=== PATIENT | male | born 1930 | race Caucasian/White ===

== ENCOUNTER → 2017-03-15 | Outpatient (CLI) | payer OTHER ==
[~2017-03-15] MED LIST: ADVAIR 250-501 EACH INH; ALBUTEROL17 GM INH; ASPIRIN81 M2 PO; BAYER CHEWABLE81 MG PO; CEFTIN250 MG/5 M PO; CENTRUM PO; CENTRUM SILVER1 EAC4 PO; CLARITIN10 M3 PO; CLOPIDOGREL75 MG PO; DOXYCYCLINE HY100 M3 PO; DOXYCYCLINE HY100 M4 PO; EC-NAPROSYN500 MG PO; FLONASE 0.05% N16 G1; FLONASE 0.05% N16 GM; FUROSEMIDE40 MG PO; HYDROCODON-ACE1 EAC7 PO; IPRATR-ALBUTEROL3 ML INH; KCL PO; LASIX PO; LEVOXYL75 MCG PO; LIPITOR20 MG PO; LOPRESSOR PO; METOPROLOL TAR25 MG PO; MORGIDOX100 MG PO; NASAL SPRAY44 ML; NITRO-DUR 0.1M0.1 MG TOP; NITRO-DUR1 EAC1 TOP; NITRODISC TOP; NITROGLYGERIN0.4 MG SL; OXYGEN INH; PATIENT'S PHARMACY; POTASSIUM CHLO10 MEQ PO; PREDNISONE; PREDNISONE PO; PREDNISONE10 MG PO; SPIRIVA18 MCG INH; SYMBICORT INH; SYNTHROID75 MCG PO; TRIAMCINOLONE A15 G2 EXT; ZITHROMAX500 MG PO; ZOCOR80 MG PO; [UNRECOGNIZED DRUG - OTHER]; [UNRECOGNIZED DRUG - OTHER] PO
--- NOTE | ~2017-03-15 | TH ---
Unit #: [id number] #: [id number] Patient: LASHON ALMONTE [id number] [address] [place], [place] [address] [id number] O MR#: [id number] NAME: LASHON ALMONTE : 1930 SEX: M STUDY DATE/TIME: 03/15/2017 UNIT: [facility] ROOM: STUDY DESCRIPTION: Cardiolite imaging. Attending Physician: Genoveva Hurd M.D. Referring Physician: Genoveva Hurd M.D. Primary Care Physician: Genoveva Hurd M.D. CARDIOLOGY REPORT EXAM Cardiolite imaging. INDICATION FOR STUDY Dyspnea, abnormal ECG, inability to exercise adequately, status post PTCA in the past. The patient stopped smoking 26 years ago, 3 packs per day. SUMMARY The patient received Lexiscan intravenously while at rest, as well as technetium 99m Cardiolite 11.47 and 36.0 mCi at rest and stress respectively. Appropriate views were obtained. FINDINGS Heart rate increased from 47 to 62 and blood pressure increased from 162/72 to 169/63. The patient did not develop any symptoms. The resting ECG showed T wave inversion in AVL. With stress there were no diagnostic ST shifts, but there were single PVCs noted. There were no sustained dysrhythmias. Perfusion images demonstrate absence of perfusion in the inferior wall from the base to the apex. The inferoapical wall is preserved, however. This extends into the inferolateral wall. There is no change between rest and stress. Planar images demonstrate slight patient motion at rest, but no significant patient motion with stress. Summed stress scores is 19, summed difference scores is 6. Changes involve primarily border detection at the base. Gated perfusion wall motion analysis demonstrates end-diastolic volume 131 ml, ejection fraction 49%, with akinesis of the inferior wall, and hypokinesis of the neeta-infarct areas. On the planar images there is no significant increase in left ventricular size. No increased lung uptake or RV enlargement. IMPRESSION 1. Inferior infarction. 2. No ischemia. 3. Mild left ventricular enlargement. 4. Low normal to mildly reduced left ventricular function. Dictated by... Ziyad Joy M.D. Unit #: [id number] #: [id number] Patient: LASHON ALMONTE PJR/gz TD: 03/15/2017 12:06 JOB #: [id number] CARDIOLOGY REPORT Page 1 of 1 X Ziyad Joy MD CARDIOLOGY REPORT
== END | disposition home or self-care (01) ==
LOC: CNUC 07:05
DX: R06.00 Dyspnea, unspecified (principal); R94.31 Abnormal electrocardiogram [ECG] [EKG]; I51.7 Cardiomegaly
CPT/HCPCS: 78452; 93017; A9500; J2785

== ENCOUNTER 2017-04-17 13:38 | Inpatient (IN) | payer OTHER ==
--- NOTE | ~2017-04-17 | EKG ---
PATIENT: LASHON ALMONTE UNIT #: [id number] Ventricular Rate: 92 BPM Atrial Rate: 92 BPM P-R Interval: 176 ms QRS Duration: 98 ms Q-T Interval: 376 ms QTC Calculation(Bezet): 464 ms P [place]: 86 degrees Calculated R [place]: -10 degrees Calculated T [place]: -45 degrees Diagnosis Line: Normal sinus rhythm with sinus arrhythmia Diagnosis Line: Poor R wave progression questionable lead position Diagnosis Line: or body habitus Diagnosis Line: Nonspecific T wave abnormality Diagnosis Line: Abnormal ECG Diagnosis Line: No previous ECGs available Diagnosis Line: Confirmed by SHANIQUA CHU MD ([id number]) on Diagnosis Line: 04/17/2017 10:21:37 PM INTERPRETING MD: ANISH
--- NOTE | ~2017-04-17 | CR72 ---
[facility] A Service of [facility] & [facility] RADIOLOGY TEXT RESULTS PATIENT: LASHON ALMONTE LOCATION: [facility] [id number] : [birth year] UNIT #: [id number] AGE: [address]: Jaya Colon MD SEX: M ORDER DR: [id number] [facility] [address] [facility]. [place], [place] [address] [id number] I MR#: [id number] Acc #: [id number] NAME: LASHON ALMONTE : 1930 SEX: M STUDY DATE/TIME: 04/18/2017 5:57 UNIT: [facility] ROOM: [facility] STUDY DESCRIPTION: CR Chest Single View Portable Attending Physician: Jaya Colon M.D. Ordering Physician: Jaya Colon M.D. Primary Care Physician: Genoveva Hurd M.D. MEDICAL IMAGING REPORT This report is preliminary unless electronic signature is present EXAM Portable chest, 04/18/2017 HISTORY 86-year-old male with shortness of air for 1 day. COMPARISON Chest, 04/17/2017 FINDINGS Two frontal views of the chest demonstrate clear lungs. No pleural effusion or pneumothorax. Emphysema. Heart size and mediastinum within normal limits. Pulmonary vasculature unremarkable. IMPRESSION Emphysema. No other acute chest findings. Dictated by... Ronaldo Maurice M.D. THIS IS AN ELECTRONICALLY VERIFIED REPORT Ronaldo Maurice M.D. at 04/18/2017 3:23 PM Geovanni TD: 04/18/2017 08:12 JOB #: [id number] MEDICAL IMAGING REPORT Page 1 of 1 COPY
--- NOTE | ~2017-04-17 | EKG ---
PATIENT: LASHON ALMONTE UNIT #: [id number] Ventricular Rate: 83 BPM Atrial Rate: 83 BPM P-R Interval: 214 ms QRS Duration: 108 ms Q-T Interval: 366 ms QTC Calculation(Bezet): 430 ms P [place]: 72 degrees Calculated R [place]: -52 degrees Calculated T [place]: -3 degrees Diagnosis Line: Sinus rhythm with 1st degree A-V block with Diagnosis Line: Premature atrial complexes Diagnosis Line: Left axis deviation Diagnosis Line: Inferior infarct (cited on or before 18-APR-2017) Diagnosis Line: Abnormal ECG Diagnosis Line: When compared with ECG of 17-APR-2017 13:45, Diagnosis Line: Premature atrial complexes are now Present Diagnosis Line: IA interval has increased Diagnosis Line: QRS axis Shifted left Diagnosis Line: Nonspecific T wave abnormality has replaced Diagnosis Line: inverted T waves in Lateral leads Diagnosis Line: Confirmed by AYSE CABA MD ([id number]) on 04/19/2017 Diagnosis Line: 6:31:05 PM INTERPRETING MD: GERTRUDIS LOPES
--- NOTE | ~2017-04-17 | CR72 ---
[facility] A Service of [facility] & [facility] RADIOLOGY TEXT RESULTS PATIENT: LASHON ALMONTE LOCATION: [facility] [id number] : [birth year] UNIT #: [id number] AGE: [address]: Jaya Colon MD SEX: M ORDER DR: [id number] [facility] [address] [facility]. [place], [place] [address] [id number] I MR#: [id number] Acc #: [id number] NAME: LASHON ALMONTE : 1930 SEX: M STUDY DATE/TIME: 04/17/2017 14:58 UNIT: [facility] ROOM: [facility] STUDY DESCRIPTION: CR Chest Single View Portable Attending Physician: Jaya Colon M.D. Ordering Physician: Gino Hanson M.D. Primary Care Physician: Genoveva Hurd M.D. MEDICAL IMAGING REPORT This report is preliminary unless electronic signature is present EXAM Portable chest 2 views, 04/17/2017. COMPARISON 12/23/2014 HISTORY Short of air for 3 weeks. FINDINGS Redemonstrated pulmonary hyperexpansion consistent with COPD, but there is no consolidation, effusion, pneumothorax, or suspicious nodule. No acute abnormality. Dictated by... Cade Walters M.D. THIS IS AN ELECTRONICALLY VERIFIED REPORT Cade Walters M.D. at 04/20/2017 2:20 PM TEV/collin TD: 04/17/2017 21:07 JOB #: [id number] MEDICAL IMAGING REPORT Page 1 of 1 COPY
--- NOTE | ~2017-04-17 | HP ---
Unit #: [id number] #: [id number] Patient: LASHON ALMONTE [id number] [address] [place], [place] [address] [id number] I MR#: [id number] NAME: LASHON ALMONTE ROOM: 36612 Age: 86 Sex: M Admission Date: 04/17/2017 : 1930 Attending Physician: Jaya Colon M.D. Primary Care Physician: Genoveva Hurd M.D. HISTORY AND PHYSICAL CHIEF COMPLAINT Shortness of breath. HISTORY OF PRESENT ILLNESS This 86-year-old gentleman previously seen by Dr. Canada and apparently sees him in the office intermittently as well. He has had a 3-5 week history of increasing shortness of breath. He apparently would receive steroids and antibiotics and would improve but then this would recur. He presents to the emergency room. Chest x-ray was unremarkable for any acute issues. He received Solu-Medrol and was presented for admission. He denies chest pain, hemoptysis or palpitations. He does have wheezing, sputum production, cough but no fever. PAST MEDICAL HISTORY Remarkable for: 1. Chronic kidney disease. 2. COPD. 3. Chronic respiratory failure on 3 liters at home. 4. Hypothyroidism is mentioned but he could not tell me if he was on thyroid replacement. PAST SURGICAL HISTORY 1. HOME MEDICATIONS He is very vague with his medicine and formal medication reconciliation sheet is pending. 1. He can tell me he is on Spiriva. 2. He is on an albuterol nebulizer which he takes q.i.d. 3. He is on aspirin. 4. Thorazine for unknown reasons. ALLERGIES Penicillin. SOCIAL HISTORY Remote tobacco. Does not drink. He lives at home. FAMILY HISTORY No definite familial lung disease. REVIEW OF SYSTEMS He has no swallowing difficulty. No abdominal pain, melena, hematochezia, diarrhea. No hematuria, dysuria. No focal weakness or paresthesias, leg Unit #: [id number] #: [id number] Patient: LASHON ALMONTE pain or swelling. He denies chest pain or palpitations. No fever or chills. Further review of systems is negative. PHYSICAL EXAMINATION VITAL SIGNS: He is afebrile. Pulse 90, respiratory rate 20, blood pressure 121/63. 5 feet 11 inches, 175 pounds. GENERAL: Elderly gentleman in no acute distress. HEENT: Pupils are equal, round, and reactive to light. Sclerae anicteric. Head atraumatic. He is edentulous with dentures in place. Mucous membranes are moist. NECK: Supple. No supraclavicular or cervical adenopathy appreciated. LUNGS: Scattered wheezing, rhonchi. No consolidation. HEART: Regular rate and rhythm. No pathologic murmur, rub or gallop. ABDOMEN: Soft, nontender. No hepatomegaly or rebound. EXTREMITIES: No clubbing, cyanosis or edema. No calf tenderness. NEUROLOGIC: Grossly intact. No focal muscle or sensory deficits. SKIN: Warm and dry without rash or diaphoresis. DIAGNOSTIC STUDIES LABORATORY: Arterial blood gas pH 7.47, pCO2 of 38, pO2 of 65 on 2 liters. BUN 31, creatinine 1.7. BNP 339. Lactic acid 2.0. TSH in 2013 was normal. Initial cardiac enzymes negative. CBC normal. Blood cultures performed and are pending. IMAGING: Chest x-ray I see no definite acute infiltrates. There appears to be some scarring at the left base. There was some area of abnormality there all the way back in 2013. However, a chest x-ray in 2014 was fairly clear and this area should be followed. CARDIOVASCULAR: EKG is abnormal with nonspecific ST-T-wave changes. I have no old EKGs to compare. IMPRESSION 1. Shortness of breath. 2. Acute exacerbation of chronic obstructive pulmonary disease. 3. Chronic respiratory failure. 4. Coronary artery disease with abnormal EKG. 5. Chronic kidney disease. 6. Mildly abnormal chest x-ray. 7. Possible history of hypothyroidism. 8. Medical problems listed above. PLAN 1. Admission to the hospital. 2. IV medications, IV antibiotics. 3. Will cover for possible pneumonia and repeat his chest x-ray in the morning. 4. I will ask cardiology evaluation regarding his EKG. 5. Cardiac enzymes will be monitored. Unit #: [id number] #: [id number] Patient: LASHON ALMONTE Dictated by Shalini Helton/marlin TD: 04/17/2017 17:39 JOB #: [id number] HISTORY AND PHYSICAL Page 1 of 1 X Jaya Colon MD HISTORY AND PHYSICAL
--- NOTE | ~2017-04-17 | DS ---
Unit #: [id number] #: [id number] Patient: LASHON ALMONTE [id number] [address] [address] [id number] I MR#: [id number] NAME: LASHON ALMONTE ROOM: 576 Age: 86 Sex: M Admission Date: 04/17/2017 : 1930 Discharge Date: 04/23/2017 Attending Physician: Jaya Colon M.D. Primary Care Physician: Genoveva Hurd M.D. DISCHARGE SUMMARY DISCHARGE DIAGNOSES 1. Acute and chronic hypoxemic respiratory failure. 2. Chronic obstructive pulmonary disease exacerbation. 3. Coronary artery disease. 4. Chronic systolic congestive heart failure. 5. Hyperlipidemia. 6. Chronic kidney disease. 7. Fbdv-ug-kbgsrcgh aortic regurgitation. DISCHARGE MEDICATIONS 1. Metoprolol 12.5 mg b.i.d. 2. Lipitor 20 mg q.h.s. 3. Plavix 75 mg daily. 4. Prednisone 40 mg for 3 days, decreasing by 10 mg every 3 days until off. 5. Multivitamin 1 daily. 6. Aspirin 81 mg daily. 7. Dewey Nasal [place] as needed. 8. Synthroid 75 mcg daily. 9. Albuterol inhaler or nebulizer q.4 hours as needed. 10. Spiriva 18 mcg 1 inhalation daily. 11. Advair 250/50 mcg 1 inhalation b.i.d. 12. Lasix 20 mg p.o. daily. 13. Sublingual nitroglycerin. 14. O2 at prescribed level. DISCHARGE DIET Healthy heart diet. HOSPITAL COURSE Patient admitted with increasing shortness of breath with exacerbation of COPD. Also had a history of coronary artery disease status post PCI and stents approximately 20 years ago. Had a recent Cardiolite stress test in March, which showed inferior infarct, no ischemia, ejection fraction 49%. He had an abnormal EKG on admission. Cardiology was consulted. He was treated for exacerbation of his COPD with inhaled bronchodilators, IV Solu-Medrol and antibiotics. He improved with clearing of his wheezes, and his steroid dose has been decreased. He underwent cardiac catheterization by Dr. Esquivel. The left circumflex was codominant, and it appears like that was dilated. The right coronary artery also had a 90% lesion, but that is scheduled to be done in sequential fashion in 3 weeks. He is to follow up in our office in 2 weeks to monitor respiratory status, follow up with Dr. Esquivel for his angioplasty. Unit #: [id number] #: [id number] Patient: LASHON ALMONTE Dictated by... Shalini Renae/cassandra TD: 04/24/2017 08:04 JOB #: [id number] DISCHARGE SUMMARY Page 1 of 1 X Eulogio Canada MD X DISCHARGE SUMMARY
--- NOTE | ~2017-04-17 | CO ---
Unit #: [id number] #: [id number] Patient: LASHON ALMONTE [id number] [address] [place] [id number] [facility] [place] [facility]. [place], [place] [address] [id number] I MR#: [id number] NAME: LASHON ALMONTE ROOM: 576 Age: 86 Sex: M Admission Date: 04/17/2017 : 1930 Attending Physician: Jaya Colon M.D. Primary Care Physician: Genoveva Hurd M.D. Consultation Date: 04/18/2017 CONSULTATION REPORT REASON FOR CONSULTATION Abnormal EKG. HISTORY OF PRESENT ILLNESS This is an 86-year-old white male, previously known to our group with a past medical history of coronary artery disease status post PCI and stents approximately 20 years ago after a myocardial infarction. One of the cardiac catheterizations was completed by Dr. Garcia and the other one was done at [facility]. Details are unavailable. The patient had a recent Lexiscan Cardiolite stress test on 03/15/2017, that was ordered by his primary care provider. Nuclear images revealed an inferior infarct, but no ischemia. Ejection fraction was 49%. Additional past medical history includes COPD on home oxygen, hyperlipidemia, hypothyroidism, and reformed tobacco abuse. The patient presented to the hospital with complaints of shortness of breath over the past 5 weeks, it worse over the past 1 week. The shortness of breath has been mainly with exertion, but at sometimes at rest. He denies PND or orthopnea. He did have some lower extremity edema. He was given Lasix by his provider, but only took it for 2 days. Once the edema resolved, he quit taking the medication per instructions from his primary care. He denies dizziness, palpitations, or syncope. He has been sleeping with 1 pillow at night. He states that he is fairly active and is still working at the age of 86. He is on home oxygen, but states that he does not wear it all the time, but does have a nearby. He denies fever or chills. He has had a cough, which was nonproductive for a while, but now has become productive. He did notice that he had some chest pain recently after coughing that was described as tightness. It went across the chest. He has had no other episodes of chest pain with exertion or rest. In the emergency department, his temperature was 97.8, pulse 90, respirations 20, blood pressure 104/63, and O2 saturation normal. He was given a dose of IV Solu-Medrol. He was admitted for an acute exacerbation of COPD. Initial EKG revealed a left axis deviation and Q-waves in the inferior leads. He also had some T-wave abnormality as well as sinus arrhythmia. Cardiology was consulted due to abnormal EKG. PAST MEDICAL HISTORY 1. Lexiscan Cardiolite stress test on 03/15/2017, revealed an inferior infarct. No ischemia. Ejection fraction 49%. 2. Coronary artery disease with myocardial infarction status post PCI and stent approximately 20 years ago. Repeat [place] and PCI and stent a couple of years later. Records unavailable. Unit #: [id number] #: [id number] Patient: LASHON ALMONTE 3. COPD, on home oxygen. 4. Hyperlipidemia. 5. Hypothyroidism. 6. Reformed tobacco abuse. PAST SURGICAL HISTORY Cardiac catheterization with PCI and stents x2. HOME MEDICATIONS 1. Aspirin 81 mg p.o. daily. 2. Multivitamin 1 tablet p.o. daily. 3. Prednisone 20 mg taper. 4. Doxycycline 100 mg p.o. b.i.d. for 14 days. 5. Lasix 20 mg p.o. daily for 5 days and p.r.n. 6. Synthroid 25 mcg p.o. daily. 7. Nitroglycerin 0.2 mg p.r.n. 8. Albuterol 2 puffs inhalation b.i.d. p.r.n. ALLERGIES Penicillin. SOCIAL HISTORY The patient lives in a private residence alone. 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 He is a reformed smoker and quit 20 years ago. There are no reports of illicit drug use. He quit drinking alcohol 35 years ago. FAMILY HISTORY His father of alcoholic cirrhosis. REVIEW OF SYSTEMS A 10-point review of systems is negative except for details noted above in HPI. PHYSICAL EXAMINATION VITAL SIGNS: Temperature 98.2, pulse 68, and blood pressure 114/62. CONSTITUTIONAL: This is an 86-year-old white male, in no acute distress. SKIN: Warm and dry. NECK: Supple. No jugular vein distention. No hepatojugular reflex. Normal carotid upstrokes. No carotid bruits auscultated. HEART: S1 and S2. Regular rate and rhythm. No murmurs, rubs, or gallops. LUNGS: Breath sounds are diminished in the bases. Respirations are even and nonlabored. No rales, rhonchi, or wheezes. ABDOMEN: Soft, nontender, and nondistended. Positive bowel sounds auscultated x4 quadrants. No ascites noted. EXTREMITIES: Bilateral lower extremities have no pretibial or pitting edema. DP and PT pulses 2+. Capillary refill is less than 2 seconds. DIAGNOSTIC STUDIES LABORATORY RESULTS: White blood cell count 6, hemoglobin 12.5, hematocrit 37.4, and platelets 219. Sodium 131, potassium 4.5, chloride 96, CO2 of 26, BUN 33, creatinine 1.4, and glucose 138. AST 29, ALT 19, and alkaline phosphatase 46. BNP 339 and troponin 0.04. Lactic acid 2.0. TSH 0.36. Blood cultures pending. IMAGING STUDIES: Chest x-ray reveals COPD, with no acute findings. Unit #: [id number] #: [id number] Patient: LASHON ALMONTE CARDIOVASCULAR STUDIES: Echocardiogram reveals sinus rhythm with Q waves in the inferior leads, nonspecific ST-T wave changes. Sinus arrhythmia. Also had first-degree AV block. QTc 430 milliseconds. T-wave abnormalities in the lateral leads. IMPRESSION 1. Acute on chronic bronchitis. 2. Oxygen-dependent chronic obstructive pulmonary disease. 3. Coronary artery disease with old myocardial infarction status post percutaneous coronary intervention and stents in the 1990s. Details unavailable, but pending. 4. Recent Lexiscan Cardiolite stress test on 03/15/2017, revealed no ischemia. Ejection fraction 49%. 5. Stable angina. 6. Hyperlipidemia. 7. Hypothyroidism. 8. Reformed tobacco abuse. PLAN 1. The patient presented to the hospital with complaints of shortness of breath. He was admitted for COPD. 2. Cardiology was consulted due to abnormal EKG. 3. Initial cardiac enzymes are negative. We will trend serial cardiac enzymes and EKG. 4. The patient's scheduled nitroglycerin will be discontinued. 5. He will be continued on aspirin. 6. Fasting lipid profile and TSH will be obtained. 7. A 2D echocardiogram will be ordered to assess LV function and valves. 8. Records will be reviewed from [facility] and [facility]. 9. If EKG shows worsening ischemia, he may need a cardiac cath. Dictated by... Janet Jett APRN for Shalini Choi TD: 04/19/2017 12:57 JOB #: [id number] CONSULTATION REPORT Page 1 of 1 X X CONSULTATION REPORT
--- NOTE | ~2017-04-17 | EKG ---
PATIENT: LASHON ALMONTE UNIT #: [id number] Ventricular Rate: 55 BPM Atrial Rate: 55 BPM P-R Interval: 190 ms QRS Duration: 110 ms Q-T Interval: 432 ms QTC Calculation(Bezet): 413 ms P [place]: 40 degrees Calculated R [place]: -36 degrees Calculated T [place]: -28 degrees Diagnosis Line: Sinus bradycardia Diagnosis Line: Left axis deviation Diagnosis Line: Inferior infarct (cited on or before 18-APR-2017) Diagnosis Line: Abnormal ECG Diagnosis Line: When compared with ECG of 20-APR-2017 11:22, Diagnosis Line: (unconfirmed) Diagnosis Line: T wave inversion less evident in Inferior leads Diagnosis Line: Confirmed by AYSE CABA MD ([id number]) on 04/22/2017 Diagnosis Line: 4:36:21 PM INTERPRETING MD: GERTRUDIS LOPES
--- NOTE | ~2017-04-17 | EKG ---
PATIENT: LASHON ALMONTE UNIT #: [id number] Ventricular Rate: 51 BPM Atrial Rate: 51 BPM P-R Interval: 206 ms QRS Duration: 98 ms Q-T Interval: 450 ms QTC Calculation(Bezet): 414 ms P [place]: 1 degrees Calculated R [place]: -52 degrees Calculated T [place]: -57 degrees Diagnosis Line: Sinus bradycardia Diagnosis Line: Left anterior fascicular block Diagnosis Line: Inferior infarct , age undetermined Diagnosis Line: Abnormal ECG Diagnosis Line: Diagnosis Line: Confirmed by AYSE CABA MD ([id number]) on 04/22/2017 Diagnosis Line: 4:25:28 PM INTERPRETING MD: GERTRUDIS LOPES
--- NOTE | ~2017-04-17 | EKG ---
PATIENT: LASHON ALMONTE UNIT #: [id number] Ventricular Rate: 81 BPM Atrial Rate: 81 BPM P-R Interval: 220 ms QRS Duration: 114 ms Q-T Interval: 372 ms QTC Calculation(Bezet): 432 ms P [place]: 84 degrees Calculated R [place]: -62 degrees Calculated T [place]: -18 degrees Diagnosis Line: Sinus rhythm with 1st degree A-V block with Diagnosis Line: occasional Premature ventricular complexes Diagnosis Line: Left axis deviation Diagnosis Line: Inferior infarct (cited on or before 18-APR-2017) Diagnosis Line: Abnormal ECG Diagnosis Line: When compared with ECG of 18-APR-2017 09:49, Diagnosis Line: (unconfirmed) Diagnosis Line: Premature ventricular complexes are now Present Diagnosis Line: Premature atrial complexes are no longer Present Diagnosis Line: Nonspecific T wave abnormality no longer evident Diagnosis Line: in Lateral leads Diagnosis Line: Confirmed by AYSE CABA MD ([id number]) on 04/19/2017 Diagnosis Line: 6:46:58 PM INTERPRETING MD: GERTRUDIS LOPES
--- NOTE | ~2017-04-17 | EKG ---
PATIENT: LASHON ALMONTE UNIT #: [id number] Ventricular Rate: 50 BPM Atrial Rate: 50 BPM P-R Interval: 200 ms QRS Duration: 110 ms Q-T Interval: 446 ms QTC Calculation(Bezet): 406 ms P [place]: 41 degrees Calculated R [place]: -53 degrees Calculated T [place]: -45 degrees Diagnosis Line: Sinus bradycardia Diagnosis Line: Left anterior fascicular block Diagnosis Line: Inferior infarct (cited on or before 18-APR-2017) Diagnosis Line: Abnormal ECG Diagnosis Line: When compared with ECG of 19-APR-2017 05:36, Diagnosis Line: Premature ventricular complexes are no longer Diagnosis Line: Present Diagnosis Line: Vent. rate has decreased BY 31 BPM Diagnosis Line: T wave inversion more evident in Inferior leads Diagnosis Line: Confirmed by AYSE CABA MD ([id number]) on 04/22/2017 Diagnosis Line: 4:20:49 PM INTERPRETING MD: GERTRUDIS LOPES
[~2017-04-17 13:38] MED LIST changes: -ADVAIR 250-501 EACH INH; -ASPIRIN81 M2 PO; -BAYER CHEWABLE81 MG PO; -CENTRUM PO; -CENTRUM SILVER1 EAC4 PO; -CLARITIN10 M3 PO; -CLOPIDOGREL75 MG PO; -DOXYCYCLINE HY100 M3 PO; -DOXYCYCLINE HY100 M4 PO; -FLONASE 0.05% N16 G1; -FLONASE 0.05% N16 GM; -FUROSEMIDE40 MG PO; -IPRATR-ALBUTEROL3 ML INH; -KCL PO; -LASIX PO; -LEVOXYL75 MCG PO; -LIPITOR20 MG PO; -LOPRESSOR PO; -METOPROLOL TAR25 MG PO; -MORGIDOX100 MG PO; -NASAL SPRAY44 ML; -NITRO-DUR 0.1M0.1 MG TOP; -NITRO-DUR1 EAC1 TOP; -NITROGLYGERIN0.4 MG SL; -OXYGEN INH; -PATIENT'S PHARMACY; -POTASSIUM CHLO10 MEQ PO; -PREDNISONE; -PREDNISONE PO; -PREDNISONE10 MG PO; -SPIRIVA18 MCG INH; -SYMBICORT INH; -[UNRECOGNIZED DRUG - OTHER]
[2017-04-17 15:26] LABS: ARTERIAL BLOOD GAS ALLEN TEST N; ARTERIAL BLOOD GAS ART SITE RIGHT RADIAL; ARTERIAL BLOOD GAS CARBOXY HB 0.5 %sat (0.0-9.0); ARTERIAL BLOOD GAS DELIVERY NASAL CANNULA; ARTERIAL BLOOD GAS HCO3 27.6 mmol/L; ARTERIAL BLOOD GAS MET HB 0.5 %sat (0.0-2.0); ARTERIAL BLOOD GAS PCO2 37.7 mmHg (35.0-45.0); ARTERIAL BLOOD GAS PO2 64.8 mmHg (80.0-100); ARTERIAL DRAW? YES
[2017-04-17 15:30] LABS: BASOPHIL% 0.3 % (0-2.5); EOSINOPHIL# 0.1 X10e3 (0-0.7); EOSINOPHIL% 0.8 % (0.0-7.0); HEMOGLOBIN 14.3 gm/dL (13.0-16.0); LYMPHOCYTE# 0.6 X10e3 (1.0-3.5); MEAN CELL VOLUME 95.3 FL (83-96); MEAN CORPUSCULAR HEMOGLOBIN 31.7 PG (28-34); MEAN CORPUSCULAR HGB CONC 33.2 g/dL (30-36); MEAN PLATELET VOLUME 7.4 FL (6.5-11.5); MONOCYTE# 0.5 X10e3 (0-1.0); MONOCYTE% 7.3 % (3.0-12.0); NEUTROPHIL# 6.3 X10e3 (1.5-7.1); NEUTROPHIL% 83.6 % (40-75); PLATELET COUNT 256 X10e3 (140-420); RED BLOOD COUNT 4.51 X10e (3.90-5.60); RED CELL DISTRIBUTION WIDTH 14.2 % (11.0-15.5); WHITE BLOOD COUNT 7.5 X10e3 (4.0-10.5)
[2017-04-17 15:33] LABS: POC - CKMB 7.7 ng/mL (0.0-7.9); POC - TROPONIN <0.05 ng/mL (<=0.05)
[2017-04-17 15:35] LABS: DIFF IND NO
[2017-04-17 15:49] LABS: ALBUMIN SERUM 3.2 g/dL (3.5-5.0); BILIRUBIN, DIRECT 0.2 mg/dL (0.0-0.2); BILIRUBIN,INDIRECT 0.9 mg/dL (0.0-0.9); BILIRUBIN,TOTAL 1.1 mg/dL (0.2-2.0); BUN/CREATININE RATIO 18.23; CALCIUM SERUM 9.2 mg/dL (8.4-10.2); CREATININE SERUM 1.7 mg/dL (0.6-1.4); GLOM FILT RATE Estimated 35.2 mL/min (>60); POTASSIUM 4.8 mmol/L (3.5-5.1); PROTEIN TOTAL SERUM 7.6 g/dL (6.0-8.3)
[2017-04-17] MEDS ORDERED: CENTRUM SILVER1 EAC4 PO (16:16)
[2017-04-17] MEDS ORDERED: ASPIRIN81 M2 PO (16:16)
[2017-04-17] MEDS ORDERED: PATIENT'S PHARMACY (16:16)
[2017-04-17] MEDS ORDERED: MORGIDOX100 MG PO (16:18)
[2017-04-17] MEDS ORDERED: PREDNISONE (16:18)
[2017-04-17] MEDS ORDERED: SYNTHROID75 MCG PO (16:19)
[2017-04-17] MEDS ORDERED: LASIX PO (16:19)
[2017-04-17] MEDS ORDERED: ALBUTEROL17 GM INH (16:20)
[2017-04-17] MEDS ORDERED: NITRO-DUR1 EAC1 TOP (16:20)
[2017-04-17 17:01] LABS: POC - CKMB 5.8 ng/mL (0.0-7.9); POC - TROPONIN <0.05 ng/mL (<=0.05)
[2017-04-18 05:31] LABS: HEMATOCRIT 37.4 % (38.0-50.0); HEMOGLOBIN 12.5 gm/dL (13.0-16.0); MEAN CELL VOLUME 95.1 FL (83-96); MEAN CORPUSCULAR HEMOGLOBIN 31.7 PG (28-34); MEAN CORPUSCULAR HGB CONC 33.3 g/dL (30-36); MEAN PLATELET VOLUME 7.4 FL (6.5-11.5); RED BLOOD COUNT 3.93 X10e (3.90-5.60); RED CELL DISTRIBUTION WIDTH 14.3 % (11.0-15.5)
[2017-04-18 05:54] LABS: BUN/CREATININE RATIO 23.57; CALCIUM SERUM 8.5 mg/dL (8.4-10.2); CREATININE SERUM 1.4 mg/dL (0.6-1.4); GLOM FILT RATE Estimated 44.6 mL/min (>60); POTASSIUM 4.5 mmol/L (3.5-5.1)
[2017-04-18 11:09] LABS: CK TOTAL 43 IU/L (36-174)
[2017-04-19 08:06] LABS: HEMATOCRIT 36.9 % (38.0-50.0); MEAN CELL VOLUME 95.5 FL (83-96); MEAN CORPUSCULAR HGB CONC 32.5 g/dL (30-36); MEAN PLATELET VOLUME 7.6 FL (6.5-11.5); RED BLOOD COUNT 3.86 X10e (3.90-5.60); RED CELL DISTRIBUTION WIDTH 14.2 % (11.0-15.5)
[2017-04-19 08:16] LABS: WHITE BLOOD COUNT 11.1 X10e3 (4.0-10.5)
[2017-04-19 09:36] LABS: BUN/CREATININE RATIO 28.46; CALCIUM SERUM 8.6 mg/dL (8.4-10.2); CREATININE SERUM 1.3 mg/dL (0.6-1.4); GLOM FILT RATE Estimated 48.7 mL/min (>60); POTASSIUM 4.4 mmol/L (3.5-5.1)
[2017-04-20 05:32] LABS: HEMATOCRIT 34.8 % (38.0-50.0); HEMOGLOBIN 11.4 gm/dL (13.0-16.0); MEAN CELL VOLUME 96.2 FL (83-96); MEAN CORPUSCULAR HEMOGLOBIN 31.6 PG (28-34); MEAN CORPUSCULAR HGB CONC 32.9 g/dL (30-36); MEAN PLATELET VOLUME 7.6 FL (6.5-11.5); RED BLOOD COUNT 3.61 X10e (3.90-5.60); RED CELL DISTRIBUTION WIDTH 14.2 % (11.0-15.5); WHITE BLOOD COUNT 10.8 X10e3 (4.0-10.5)
[2017-04-20 05:54] LABS: BUN/CREATININE RATIO 30.76; CALCIUM SERUM 8.5 mg/dL (8.4-10.2); CREATININE SERUM 1.3 mg/dL (0.6-1.4); GLOM FILT RATE Estimated 48.7 mL/min (>60); POTASSIUM 4.5 mmol/L (3.5-5.1)
[2017-04-20 06:21] LABS: PROTHROMBIN TIME (PATIENT) 10.1 SECONDS (9.6-11.5)
[2017-04-20 19:39] LABS: ANGIO %MB 25.6 % (0.0-4.0); ANGIO MB 8.7 ng/ml
[2017-04-21 05:30] LABS: HEMATOCRIT 33.1 % (38.0-50.0); HEMOGLOBIN 10.8 gm/dL (13.0-16.0); MEAN CELL VOLUME 96.3 FL (83-96); MEAN CORPUSCULAR HEMOGLOBIN 31.5 PG (28-34); MEAN CORPUSCULAR HGB CONC 32.7 g/dL (30-36); MEAN PLATELET VOLUME 7.7 FL (6.5-11.5); RED BLOOD COUNT 3.44 X10e (3.90-5.60); RED CELL DISTRIBUTION WIDTH 14.5 % (11.0-15.5); WHITE BLOOD COUNT 13.3 X10e3 (4.0-10.5)
[2017-04-21 06:23] LABS: BUN/CREATININE RATIO 35.33; CALCIUM SERUM 8.4 mg/dL (8.4-10.2); CREATININE SERUM 1.5 mg/dL (0.6-1.4); POTASSIUM 4.4 mmol/L (3.5-5.1)
[2017-04-21 06:27] LABS: ANGIO %MB 25.3 % (0.0-4.0); ANGIO MB 8.1 ng/ml
[2017-04-22 06:59] LABS: BUN/CREATININE RATIO 39.28; CALCIUM SERUM 8.8 mg/dL (8.4-10.2); CREATININE SERUM 1.4 mg/dL (0.6-1.4); GLOM FILT RATE Estimated 44.6 mL/min (>60); POTASSIUM 4.8 mmol/L (3.5-5.1)
[2017-04-23] MEDS ORDERED: LOPRESSOR PO (11:27)
[2017-04-23] MEDS ORDERED: LIPITOR20 MG PO (11:28)
[2017-04-23] MEDS ORDERED: NASAL SPRAY44 ML (11:29)
[2017-04-23] MEDS ORDERED: ADVAIR 250-501 EACH INH (11:29)
[2017-04-23] MEDS ORDERED: SPIRIVA18 MCG INH (11:30)
[2017-04-23] MEDS ORDERED: CLOPIDOGREL75 MG PO (11:30)
[2017-05-14] MEDS ORDERED: KCL PO (16:22)
[2017-05-14] MEDS ORDERED: FLONASE 0.05% N16 GM (16:25)
== END 2017-04-23 15:14 | disposition home or self-care (01) | DRG 981 ==
LOC: CED 13:38 → CEDOF 16:59 → C5C 16:59
PROVIDERS: Emergency Medicine; Internal Medicine; Internal Medicine Cardiovascular Disease; Nurse Practitioner Family
PROC: B24BYZZ Ultrasonography of Heart with Aorta using Other Contrast (ICD-10-PCS; principal; 2017-04-18)
PROC: 027035Z Dilation of Coronary Artery, One Artery with Two Drug-eluting Intraluminal Devices, Percutaneous Approach (ICD-10-PCS; 2017-04-20)
PROC: 4A023N7 Measurement of Cardiac Sampling and Pressure, Left Heart, Percutaneous Approach (ICD-10-PCS; 2017-04-20)
PROC: B213YZZ Fluoroscopy of Multiple Coronary Artery Bypass Grafts using Other Contrast (ICD-10-PCS; 2017-04-20)
PROC: B211YZZ Fluoroscopy of Multiple Coronary Arteries using Other Contrast (ICD-10-PCS; 2017-04-20)
DX: J96.21 Acute and chronic respiratory failure with hypoxia (principal); I21.3 ST elevation (STEMI) myocardial infarction of unspecified site; J44.0 Chronic obstructive pulmonary disease with (acute) lower respiratory infection; I97.790 Other intraoperative cardiac functional disturbances during cardiac surgery; I50.22 Chronic systolic (congestive) heart failure; I25.110 Atherosclerotic heart disease of native coronary artery with unstable angina pectoris; J44.1 Chronic obstructive pulmonary disease with (acute) exacerbation; J44.9 Chronic obstructive pulmonary disease, unspecified; Z99.81 Dependence on supplemental oxygen; Z88.0 Allergy status to penicillin; Z79.82 Long term (current) use of aspirin; I25.10 Atherosclerotic heart disease of native coronary artery without angina pectoris; Z95.5 Presence of coronary angioplasty implant and graft; E78.5 Hyperlipidemia, unspecified; E03.9 Hypothyroidism, unspecified; Z87.891 Personal history of nicotine dependence; J20.9 Acute bronchitis, unspecified; I25.2 Old myocardial infarction; I35.1 Nonrheumatic aortic (valve) insufficiency; Y84.0 Cardiac catheterization as the cause of abnormal reaction of the patient, or of later complication, without mention of misadventure at the time of the procedure; Y71.8 Miscellaneous cardiovascular devices associated with adverse incidents, not elsewhere classified; N18.9 Chronic kidney disease, unspecified
CPT/HCPCS: 36415; 36600; 71010; 80048; 80061; 80076; 82308; 82550; 82553; 82803; 82947; 83605; 83880; 84443; 84484; 85025; 85027; 85347; 85610; 85730; 87040; 93005; 93306; 94640; 94760; 96374; 99285; C1725; C1769; C1874; C1887; C1894; C9460; J0153; J0456; J0696; J1644; J1650; J2250; J2370; J2920; J2930; J3010

== ENCOUNTER 2017-05-16 05:39 | Observation (INO) | payer OTHER ==
--- NOTE | ~2017-05-16 | EKG ---
PATIENT: LASHON ALMONTE UNIT #: [id number] Ventricular Rate: 59 BPM Atrial Rate: 59 BPM P-R Interval: 220 ms QRS Duration: 112 ms Q-T Interval: 418 ms QTC Calculation(Bezet): 413 ms P [place]: 79 degrees Calculated R [place]: -38 degrees Calculated T [place]: 11 degrees Diagnosis Line: Sinus bradycardia with 1st degree A-V block Diagnosis Line: Left axis deviation Diagnosis Line: Inferior infarct (cited on or before 18-APR-2017) Diagnosis Line: Abnormal ECG Diagnosis Line: When compared with ECG of 17-MAY-2017 06:35, Diagnosis Line: (unconfirmed) Diagnosis Line: No significant change was found Diagnosis Line: Confirmed by SHANIQUA CHU MD ([id number]) on Diagnosis Line: 05/20/2017 9:54:58 AM INTERPRETING MD: ANISH
--- NOTE | ~2017-05-16 | EKG ---
PATIENT: LASHON ALMONTE UNIT #: [id number] Ventricular Rate: 91 BPM Atrial Rate: 91 BPM P-R Interval: 206 ms QRS Duration: 102 ms Q-T Interval: 344 ms QTC Calculation(Bezet): 423 ms P [place]: 84 degrees Calculated R [place]: -45 degrees Calculated T [place]: 76 degrees Diagnosis Line: Normal sinus rhythm Diagnosis Line: Left anterior fascicular block Diagnosis Line: Inferior infarct (cited on or before 18-APR-2017) Diagnosis Line: Abnormal ECG Diagnosis Line: When compared with ECG of 21-APR-2017 06:56, Diagnosis Line: Vent. rate has increased BY 36 BPM Diagnosis Line: Serial changes of Inferior infarct Present Diagnosis Line: Confirmed by AYSE CABA MD ([id number]) on 05/16/2017 Diagnosis Line: 3:02:26 PM INTERPRETING MD: GERTRUDIS LOPES
--- NOTE | ~2017-05-16 | DS ---
Unit #: [id number] #: [id number] Patient: LASHON ALMONTE [id number] [facility]. [place], [place] [address] [id number] MR#: [id number] NAME: LASHON ALMONTE ROOM: 579 Age: 86 Sex: M Admission Date: 05/16/2017 : 1930 Discharge Date: 05/18/2017 Attending Physician: Yaya Esquivel M.D. Referring Physician: Yaya Esquivel M.D. Primary Care Physician: Genoveva Hurd M.D. DISCHARGE SUMMARY DISCHARGE DIAGNOSES 1. Exertional dyspnea with recurrent angina, ruled out for myocardial infarction. 2. Coronary artery disease, status post left cardiac catheterization on 04/20/2017 at [facility] per Dr. Esquivel which revealed left main normal. Left anterior descending normal. Left circumflex codominant vessel. Distal to the first obtuse marginal with 80% long segment stenosis. There was a skip area which appeared normal followed by discrete 99% stenosis causing eccentric lesion with possible thrombus caused by plaque rupture. Posterior marginal and posterior descending artery normal. Right coronary artery 95% to 99% ostial stenosis. Mid right coronary artery 70%. No LV gram secondary to renal insufficiency. FFR of mid left circumflex 0.53. Status post percutaneous coronary intervention and drug-eluting stent in the mid left circumflex. 3. Staged angioplasty and drug-eluting stent in the ostial right coronary artery on 05/16/2017. 4. Mildly elevated percentage MB, but no evidence of intraoperative myocardial infarction. 5. History of myocardial infarction, status post percutaneous coronary intervention and stents approximately 20 years ago. 6. 2D echocardiogram on 04/18/2017 was a technically difficult study. Ejection fraction 30% to 35%. Cannot rule out inferolateral wall hypokinesis/akinesis. [id number] aortic regurgitation. Mild tricuspid regurgitation. RVSP 31 mmHg. Small pericardial effusion versus fat pad. 7. Ischemic cardiomyopathy. 8. History of hypertension with recent borderline hypotension. Blood pressure currently stable. 9. Hyperlipidemia. 10. Chronic kidney disease. 11. Chronic obstructive pulmonary disease, on home oxygen. 12. Anemia questionably from hemodilution. No evidence of bleeding. 13. Immobility. 14. Hypothyroidism. 15. Reformed tobacco abuse. HOME MEDICATIONS Symbicort one puff inhalation b.i.d., ipratropium/albuterol 0.5/3 mg/3 mL one inhalation daily, Flonase 0.05% nasal spray one spray daily, Spiriva 1 inhalation daily, Claritin 10 mg p.o. daily, metoprolol tartrate 12.5 mg p.o. b.i.d. Oxygen 2 L continuous per nasal cannula, it may increase to 3 L as needed. Furosemide 40 mg p.o. daily, atorvastatin 20 mg p.o. at Unit #: [id number] #: [id number] Patient: CHRISSTACIALASHONALFONSO ALVARADO bedtime, multivitamin one tablet p.o. daily, aspirin 81 mg p.o. daily, Plavix 75 mg p.o. daily, potassium chloride 10 mEq p.o. daily, doxycycline 100 mg p.o. b.i.d. x4 days, levothyroxine 75 mcg p.o. daily, nitroglycerin 0.4 mg sublingual q.5 minutes x3 p.r.n. for chest pain, prednisone 20 mg take two tablets daily x5 days. HOSPITAL COURSE This is an 86-year-old white male, known to Dr. Esquivel with a past medical history of coronary artery disease with recent admission to [facility] on 04/17/2017 through 04/23/2017 for acute on chronic hypoxic respiratory failure, COPD exacerbation, and coronary artery disease. The patient underwent a cardiac catheterization on 04/20/2017 revealed significant disease in the left circumflex and right coronary artery. Please see details above. He underwent a PCI and stent in the mid left circumflex. The right coronary artery was not dilated at that time. He was recommended to follow up in the office. He was scheduled for staged angioplasty and stent in the right coronary artery on 05/16/2017. He underwent the procedure with no complication. A 3.5 x 12 mm Synergy drug eluting stent was successfully deployed in the ostial right coronary artery reducing stenosis 0%. There were no complications and he was transferred to telemetry overnight. On 05/17/2017, he had some shortness of breath, but no evidence of chest pain, palpitations, or dizziness. Pulmonary was consulted due to existing COPD. He was placed on Solu-Medrol which was transitioned to prednisone. He was given a prescription for doxycycline. He has ambulated without any complaints. His vitals are stable. His creatinine has ranged from 1.3 to 1.5, but has been stable. The patient is known to have chronic kidney disease and is at baseline. Blood pressure was borderline low at 89/51 mmHg on 05/17/2017. His Lasix was decreased and his blood pressure is currently stable at 100/53 mmHg. His hemoglobin was 10.3 prior to the procedure. His hemoglobin dropped to 8.5 yesterday, but has remained the same today. There are no reports of bleeding and his cath site is soft. The drop in hemoglobin could be from hemodilution as he did receive IV fluids pre and postoperatively. The fecal occult stool was ordered, but the patient has not had a bowel movement. The patient's daughter was concerned about discharge needs. She states that the patient is not compliant with medications and has had one fall at home. He was evaluated by physical therapy and occupational therapy. He has recommended for home house versus rehab. When rehab was discussed with the patient, he adamantly refused. He does agree for home health and [facility], has been consulted. Due to one episode of fall and advanced age, urinalysis was ordered to rule out urinary tract infection. Details are pending, but will be reviewed prior to discharge. Telemetry reveals sinus bradycardia/sinus rhythm with rates ranging from 49 to 60s. The patient is asymptomatic and he is on a low-dose beta-rainer. He will be discharged home later today once urinalysis is reviewed. He has been instructed to call our office or to follow up for recurrent chest pain, dizziness, falls, or syncope. A followup appointment has been arranged with Dr. Esquivel. He has also been instructed to follow up with Dr. Canada in 2 to 3 weeks. He did walk on 2 L nasal cannula and his O2 saturation was 90%. He has been instructed to wear 2 L nasal cannula at home continuously. He may increase to 3 L as needed. A BMP and CBC have been ordered on 05/30/2017 to reassess hemoglobin, hematocrit, and renal function. If the patient's hemoglobin continues to drop, he will need further workup. DIAGNOSTIC STUDIES Unit #: [id number] #: [id number] Patient: LASHON ALMONTE LABORATORY RESULTS: White blood cell count 7.3, hemoglobin 8.5, hematocrit 25.7, and platelets 279. Sodium 136, potassium 3.9, chloride 100, CO2 of 29, BUN 35, creatinine 1.5, glucose 138, calcium 8.3. CK total 19, troponin 0.06. Angio, CK total 24, MB 3.5, percentage MB 10.9 and 14.6. Total cholesterol 131, triglycerides 64, LDL 68, HDL 50. INR 1.0. Urinalysis pending. Fecal occult ordered, but not obtained due to lack of bowel movement today. CARDIOVASCULAR STUDIES: EKG reveals sinus rhythm with a first-degree AV block. Left anterior fascicular block. QTc [address] [employer] [address] Jaya sloan, Pulmonology. PHYSICAL EXAMINATION VITAL SIGNS: Temperature 98.3, pulse 59, blood pressure 100/53. CONSTITUTIONAL: This is an 86-year-old white male, in no acute distress. SKIN: Warm and dry. NECK: Supple. No jugular vein distention. No hepatojugular reflux. Normal carotid upstrokes. No carotid bruits auscultated. HEART: S1 and S2. Regular rate and rhythm. No murmurs, rubs, or gallops. LUNGS: Bilateral breath sounds have good air entry throughout all lung mcginnis except for occasional wheeze. Respirations are even and nonlabored. No rhonchi or rales. ABDOMEN: Soft, nontender, and nondistended. Positive bowel sounds auscultated x4 quadrants. No ascites noted. EXTREMITIES: Bilateral lower extremities have no pretibial pitting edema. DP and PT pulses are 2+. Capillary refill is less than 2 seconds. Right groin is soft without hematoma. DISCHARGE INSTRUCTIONS 1. The patient will be discharged home today with [facility]. 2. Follow up with Dr. Hurd in 1 to 2 weeks. 3. Follow up with Dr. Canada in 2 to 3 weeks. 4. Follow up with Dr. Esquivel on 06/21/2017 at 1:15 p.m. 5. BMP and CBC on 05/30/2017 with results sent to Dr. Esquivel. 6. Home oxygen 2 L per nasal cannula continuous. May titrate to 3 L as needed. 7. Post catheterization instructions provided. 8. Cardiac rehab consult. Dictated by... AGGIE Jung TD: 05/22/2017 00:36 JOB #: [id number] Unit #: [id number] #: [id number] Patient: LASHON ALMONTE JENNY DISCHARGE SUMMARY Page 1 of 1 X X DISCHARGE SUMMARY
--- NOTE | ~2017-05-16 | EKG ---
PATIENT: LASHON ALMONTE UNIT #: [id number] Ventricular Rate: 67 BPM Atrial Rate: 67 BPM P-R Interval: 224 ms QRS Duration: 102 ms Q-T Interval: 404 ms QTC Calculation(Bezet): 426 ms P [place]: 80 degrees Calculated R [place]: -50 degrees Calculated T [place]: 65 degrees Diagnosis Line: Sinus rhythm with 1st degree A-V block Diagnosis Line: Left anterior fascicular block Diagnosis Line: Inferior infarct (cited on or before 18-APR-2017) Diagnosis Line: Abnormal ECG Diagnosis Line: When compared with ECG of 16-MAY-2017 06:32, Diagnosis Line: (unconfirmed) Diagnosis Line: No significant change was found Diagnosis Line: Confirmed by AYSE CABA MD ([id number]) on 05/16/2017 Diagnosis Line: 3:04:15 PM INTERPRETING MD: GERTRUDIS LOPES
--- NOTE | ~2017-05-16 | CO ---
Unit #: [id number] #: [id number] Patient: LASHON DELVALLE [id number] [place], [place] [address] [id number] I MR#: [id number] NAME: LASHON DELVALLE ROOM: 579 Age: 86 Sex: M Admission Date: 05/16/2017 : 1930 Attending Physician: Yaya Esquivel M.D. Primary Care Physician: Genoveva Hurd M.D. Consultation Date: 05/17/2017 CONSULTATION REPORT REASON FOR CONSULTATION Shortness of breath. HISTORY OF PRESENT ILLNESS This is an 86-year-old gentleman with coronary artery disease, COPD, chronic respiratory failure who presents to the hospital with shortness of breath. He has undergone cardiac catheterization by Dr. Esquivel. He had persistent shortness of breath, and we were asked to evaluate the patient. Formal report on his cath is pending. He denies chest pain or palpitations. There has been no fever or hemoptysis. He has had occasional wheezing, nonproductive cough and dyspnea on exertion. His family is there and states that he can barely walk from his hospital bed to the door without significant shortness of breath. He admits to noncompliance with his Symbicort; in fact, he was using it as his rescue inhaler. His family states that he did not complete his prednisone at home as prescribed by Dr. Canada last month. PAST MEDICAL HISTORY Past medical history is remarkable for chronic respiratory failure, COPD, coronary artery disease, chronic systolic heart failure (details unclear), hyperlipidemia, chronic kidney disease, hypothyroidism. MEDICINES (per med/rec sheet) Spiriva, Symbicort (listed but was not using), DuoNeb, nitroglycerin, oxygen, potassium, Metoprolol, Lasix, Plavix, Synthroid, Flonase, Claritin, Centrum Silver, Irene aspirin, Lipitor, prednisone (listed on med/rec sheet but was not taking; unclear if he completed his antibiotics). ALLERGIES Penicillin. SOCIAL HISTORY He quit smoking 22 years ago. FAMILY HISTORY No familial lung disease that is of significance in an 86 year old. REVIEW OF SYSTEMS As above, and no chest pain, palpitations, abdominal pain, melena, hematuria, dysuria, focal weakness, paresthesias, leg pain, swelling. Further review of systems negative or as above. PHYSICAL EXAMINATION GENERAL: Examination reveals an elderly gentleman but seems to be fairly Unit #: [id number] #: [id number] Patient: LASHON DELVALLE. VITAL SIGNS: He is afebrile. Pulse 71, respiratory rate 20, blood pressure 89/51. HEENT: Pupils equal, round and reactive to light. Sclerae anicteric. Head atraumatic. He is edentulous with dentures in place. NECK: Supple. No supraclavicular or cervical adenopathy appreciated. CHEST: He has prolonged expiratory phase, occasional wheeze. No consolidation. CARDIAC: Examination reveals a regular rate and rhythm. No pathologic murmur, rub or gallop. ABDOMEN: Abdomen is soft, nontender. No hepatomegaly or rebound. EXTREMITIES: Extremities reveal no clubbing, cyanosis or edema. No calf tenderness. He has somewhat delayed capillary blush. SKIN: Warm and dry without rash or diaphoresis. NEUROLOGIC: Grossly intact. No focal muscular or sensory deficits. DIAGNOSTIC STUDIES IMAGING: Chest x-ray shows hyperinflation consistent with COPD. No acute findings. LABORATORY EXAMINATION: Arterial blood gas last month - pH 7.47, pCO2 37, pO2 65 on 2 liters. BUN 25, creatinine 1.3. INR of 1. White blood cell count 5.6, hemoglobin 8.5, platelet count 253. CARDIOVASCULAR: EKG, rhythm strips are sinus. IMPRESSION 1. Shortness of breath, multifactorial. 2. Coronary artery disease status post cath, possible PCI, await formal report. 3. Severe COPD, followed by Dr. Canada. 4. Chronic respiratory failure. 5. Noncompliance with medications, such as prednisone and Symbicort. 6. Anemia. PLAN Maximize pulmonary function. After treatment, will check walking oximetry on his oxygen tomorrow morning. It could be that he needs increased oxygen with exertion. I have discussed with the patient and family how he should take his Symbicort, continue Spiriva and would consider changing his Mini-Neb at home to albuterol only as opposed to DuoNeb. He will be treated with IV steroids and will consider an intramuscular steroid taper at discharge. I will try to obtain copy of old echocardiograms, not only for LV function but also for PA pressures. Thank you very much for allowing me to participate in the care of Mr. Delvalle. Dictated by... Shalini Helton/cassandra TD: 05/17/2017 13:17 JOB #: [id number] Unit #: [id number] #: [id number] Patient: LASHON DELVALLE CONSULTATION REPORT Page 1 of 1 X Jaya Colon MD CONSULTATION REPORT
--- NOTE | ~2017-05-16 | EKG ---
PATIENT: LASHON ALMONTE UNIT #: [id number] Ventricular Rate: 63 BPM Atrial Rate: 63 BPM P-R Interval: 206 ms QRS Duration: 106 ms Q-T Interval: 426 ms QTC Calculation(Bezet): 435 ms P [place]: 77 degrees Calculated R [place]: -39 degrees Calculated T [place]: 25 degrees Diagnosis Line: Normal sinus rhythm Diagnosis Line: Left axis deviation Diagnosis Line: Abnormal ECG Diagnosis Line: No previous ECGs available Diagnosis Line: Confirmed by SHANIQUA CUH MD ([id number]) on Diagnosis Line: 05/20/2017 9:51:57 AM INTERPRETING MD: ANISH
[~2017-05-16 05:39] MED LIST changes: +ADVAIR 250-501 EACH INH; +ASPIRIN81 M2 PO; +CENTRUM SILVER1 EAC4 PO; +CLOPIDOGREL75 MG PO; +FLONASE 0.05% N16 GM; +KCL PO; +LASIX PO; +LIPITOR20 MG PO; +LOPRESSOR PO; +MORGIDOX100 MG PO; +NASAL SPRAY44 ML; +NITRO-DUR1 EAC1 TOP; +PATIENT'S PHARMACY; +PREDNISONE; +SPIRIVA18 MCG INH
[2017-05-16] MEDS ORDERED: IPRATR-ALBUTEROL3 ML INH (06:28)
[2017-05-16] MEDS ORDERED: SYMBICORT INH (06:28)
[2017-05-16] MEDS ORDERED: SPIRIVA18 MCG INH (06:28)
[2017-05-16 06:29] LABS: HEMATOCRIT 31.1 % (38.0-50.0); HEMOGLOBIN 10.3 gm/dL (13.0-16.0); MEAN CELL VOLUME 95.7 FL (83-96); MEAN CORPUSCULAR HEMOGLOBIN 31.6 PG (28-34); MEAN PLATELET VOLUME 6.7 FL (6.5-11.5); RED BLOOD COUNT 3.25 X10e (3.90-5.60); RED CELL DISTRIBUTION WIDTH 15.4 % (11.0-15.5); WHITE BLOOD COUNT 7.1 X10e3 (4.0-10.5)
[2017-05-16] MEDS ORDERED: NITRO-DUR 0.1M0.1 MG TOP (06:29)
[2017-05-16] MEDS ORDERED: OXYGEN INH (06:29)
[2017-05-16] MEDS ORDERED: POTASSIUM CHLO10 MEQ PO (06:30)
[2017-05-16] MEDS ORDERED: METOPROLOL TAR25 MG PO (06:31)
[2017-05-16] MEDS ORDERED: LEVOXYL75 MCG PO (06:31)
[2017-05-16] MEDS ORDERED: FUROSEMIDE40 MG PO (06:31)
[2017-05-16] MEDS ORDERED: CLOPIDOGREL75 MG PO (06:31)
[2017-05-16] MEDS ORDERED: FLONASE 0.05% N16 G1 (06:32)
[2017-05-16] MEDS ORDERED: CLARITIN10 M3 PO (06:32)
[2017-05-16] MEDS ORDERED: CENTRUM PO (06:32)
[2017-05-16] MEDS ORDERED: LIPITOR20 MG PO (06:33)
[2017-05-16] MEDS ORDERED: PREDNISONE10 MG PO (06:33)
[2017-05-16] MEDS ORDERED: BAYER CHEWABLE81 MG PO (06:33)
[2017-05-16] MEDS ORDERED: DOXYCYCLINE HY100 M4 PO (06:34)
[2017-05-16 06:40] LABS: PARTIAL THROMBOPLASTIN TIME 26.8 SECONDS (23.5-31.3); PROTHROMBIN TIME (PATIENT) 10.7 SECONDS (10.0-11.7)
[2017-05-16 07:05] LABS: BUN/CREATININE RATIO 19.33; CALCIUM SERUM 8.5 mg/dL (8.4-10.2); CREATININE SERUM 1.5 mg/dL (0.6-1.4); POTASSIUM 3.9 mmol/L (3.5-5.1)
[2017-05-16 17:30] LABS: ANGIO %MB 10.9 % (0.0-4.0); ANGIO MB 3.8 ng/ml
[2017-05-17 01:45] LABS: ANGIO %MB 14.6 % (0.0-4.0); ANGIO MB 3.5 ng/ml
[2017-05-17 06:53] LABS: HEMATOCRIT 25.9 % (38.0-50.0); HEMOGLOBIN 8.5 gm/dL (13.0-16.0); MEAN CELL VOLUME 96.1 FL (83-96); MEAN CORPUSCULAR HEMOGLOBIN 31.7 PG (28-34); RED BLOOD COUNT 2.7 X10e (3.90-5.60); RED CELL DISTRIBUTION WIDTH 15.5 % (11.0-15.5); WHITE BLOOD COUNT 5.6 X10e3 (4.0-10.5)
[2017-05-17 08:18] LABS: BUN/CREATININE RATIO 19.23; CALCIUM SERUM 7.8 mg/dL (8.4-10.2); CREATININE SERUM 1.3 mg/dL (0.6-1.4); GLOM FILT RATE Estimated 48.7 mL/min (>60); POTASSIUM 4.5 mmol/L (3.5-5.1)
[2017-05-18 05:41] LABS: HEMATOCRIT 25.7 % (38.0-50.0); HEMOGLOBIN 8.5 gm/dL (13.0-16.0); MEAN CELL VOLUME 96.2 FL (83-96); MEAN CORPUSCULAR HEMOGLOBIN 31.9 PG (28-34); MEAN CORPUSCULAR HGB CONC 33.1 g/dL (30-36); RED BLOOD COUNT 2.67 X10e (3.90-5.60); RED CELL DISTRIBUTION WIDTH 15.8 % (11.0-15.5); WHITE BLOOD COUNT 7.3 X10e3 (4.0-10.5)
[2017-05-18 06:47] LABS: BUN/CREATININE RATIO 23.33; CALCIUM SERUM 8.3 mg/dL (8.4-10.2); CREATININE SERUM 1.5 mg/dL (0.6-1.4); POTASSIUM 3.9 mmol/L (3.5-5.1)
[2017-05-18] MEDS ORDERED: PREDNISONE PO (14:29)
[2017-05-18] MEDS ORDERED: DOXYCYCLINE HY100 M3 PO (14:30)
[2017-05-18] MEDS ORDERED: SYMBICORT INH (14:31)
[2017-05-18] MEDS ORDERED: NITROGLYGERIN0.4 MG SL (14:32)
[2017-05-18 14:33] LABS: URINE APPEARANCE CLEAR; URINE BILIRUBIN NEG (NEG); URINE BLOOD NEG (NEG); URINE COLOR YELLOW; URINE GLUCOSE NEG (NEG); URINE KETONE NEG (NEG); URINE LEUKOCYTE ESTERASE NEG (NEG); URINE NITRATE NEG (NEG); URINE PROTEIN NEG (NEG); URINE UROBILINOGEN 0.2 MG/DL (NEG)
[2017-05-18] MEDS ORDERED: [UNRECOGNIZED DRUG - OTHER] (14:33)
[2017-05-18 14:36] LABS: CULTURE INDICATED? NO
== END 2017-05-18 15:40 | disposition home or self-care (01) ==
LOC: CCVL 05:39 → C5C 14:38 → CEDOF 14:38 → C5C 14:41
PROVIDERS: Internal Medicine Cardiovascular Disease; Nurse Practitioner
DX: I25.118 Atherosclerotic heart disease of native coronary artery with other forms of angina pectoris (principal); Z95.5 Presence of coronary angioplasty implant and graft; I25.2 Old myocardial infarction; I25.5 Ischemic cardiomyopathy; E78.5 Hyperlipidemia, unspecified; J44.9 Chronic obstructive pulmonary disease, unspecified; J96.10 Chronic respiratory failure, unspecified whether with hypoxia or hypercapnia; I08.1 Rheumatic disorders of both mitral and tricuspid valves; Z99.81 Dependence on supplemental oxygen; E03.9 Hypothyroidism, unspecified; N18.9 Chronic kidney disease, unspecified; Z87.891 Personal history of nicotine dependence; D64.9 Anemia, unspecified; Z91.14 Patient's other noncompliance with medication regimen; Z86.79 Personal history of other diseases of the circulatory system
CPT/HCPCS: 36415; 80048; 80061; 81003; 82550; 82553; 84484; 85027; 85347; 85610; 85730; 93005; 94640; 94664; 94760; 96374; 96376; 97116; 97161; 97166; C1725; C1769; C1874; C1887; C1894; G0378; G8978-GP; G8979-GP; G8987-GO; G8988-GO; G8989-GO; J0461; J1644; J2250; J2270; J2405; J2920; J3010

== ENCOUNTER → 2017-05-30 | Outpatient (CLI) | payer OTHER ==
[~2017-05-30] MED LIST changes: +BAYER CHEWABLE81 MG PO; +CENTRUM PO; +CLARITIN10 M3 PO; +DOXYCYCLINE HY100 M3 PO; +DOXYCYCLINE HY100 M4 PO; +FLONASE 0.05% N16 G1; +FUROSEMIDE40 MG PO; +IPRATR-ALBUTEROL3 ML INH; +LEVOXYL75 MCG PO; +METOPROLOL TAR25 MG PO; +NITRO-DUR 0.1M0.1 MG TOP; +NITROGLYGERIN0.4 MG SL; +OXYGEN INH; +POTASSIUM CHLO10 MEQ PO; +PREDNISONE PO; +PREDNISONE10 MG PO; +SYMBICORT INH; +[UNRECOGNIZED DRUG - OTHER]
[2017-05-30 13:02] LABS: HEMATOCRIT 28.8 % (38.0-50.0); HEMOGLOBIN 9.5 gm/dL (13.0-16.0); MEAN CELL VOLUME 97.2 FL (83-96); MEAN CORPUSCULAR HEMOGLOBIN 32.1 PG (28-34); MEAN PLATELET VOLUME 7.7 FL (6.5-11.5); RED BLOOD COUNT 2.96 X10e (3.90-5.60); RED CELL DISTRIBUTION WIDTH 17.7 % (11.0-15.5); WHITE BLOOD COUNT 11.5 X10e3 (4.0-10.5)
[2017-05-30 13:07] LABS: BUN/CREATININE RATIO 16.15; CALCIUM SERUM 8.4 mg/dL (8.4-10.2); CREATININE SERUM 1.3 mg/dL (0.6-1.4); GLOM FILT RATE Estimated 48.7 mL/min (>60); POTASSIUM 3.9 mmol/L (3.5-5.1)
== END | disposition home or self-care (01) ==
LOC: CLAB 11:30
PROVIDERS: Family Medicine
DX: D64.9 Anemia, unspecified (principal); N28.9 Disorder of kidney and ureter, unspecified
CPT/HCPCS: 80048; 85027

== ENCOUNTER → 2017-05-30 | Outpatient (CLI) | payer OTHER ==
[2017-05-30 11:27] LABS: HEMATOCRIT 28.8 % (38.0-50.0); HEMOGLOBIN 9.5 gm/dL (13.0-16.0); MEAN CELL VOLUME 97.2 FL (83-96); MEAN CORPUSCULAR HEMOGLOBIN 32.1 PG (28-34); MEAN PLATELET VOLUME 7.7 FL (6.5-11.5); RED BLOOD COUNT 2.96 X10e (3.90-5.60); RED CELL DISTRIBUTION WIDTH 17.7 % (11.0-15.5); WHITE BLOOD COUNT 11.5 X10e3 (4.0-10.5)
[2017-05-30 11:52] LABS: BUN/CREATININE RATIO 16.15; CALCIUM SERUM 8.4 mg/dL (8.4-10.2); CREATININE SERUM 1.3 mg/dL (0.6-1.4); GLOM FILT RATE Estimated 48.7 mL/min (>60); POTASSIUM 3.9 mmol/L (3.5-5.1)
== END | disposition home or self-care (01) ==
LOC: CLAB 09:50
PROVIDERS: Internal Medicine Cardiovascular Disease
DX: D64.9 Anemia, unspecified (principal); R94.4 Abnormal results of kidney function studies
CPT/HCPCS: 36415; 80048; 85027